=== PATIENT | male | born 1965 | race Caucasian/White ===

== ENCOUNTER 2020-09-29 15:54 | Emergency (ER) | payer OTHER ==
[~2020-09-29] VITALS: Ht 185.4 cm; Wt 97.7 kg
[2020-09-29 16:54] VITALS: Ht 185.4 cm; Wt 97.7 kg
[2020-09-29] MEDS ORDERED: DEPAKOTE ER500 MG PO (16:59)
[2020-09-29 17:15] LABS: BASOPHILS 0.8 % (0-2); EOSINOPHILS 0.8 % (0-7); HEMATOCRIT 40.2 % (42.0-54.0); HEMOGLOBIN 14.3 g/dL (13.5-17.5); IMMATURE GRANULOCYTES 0.5 % (0-5); LYMPHOCYTE ABS# 0.75 10x3/uL (1.32-3.57); LYMPHOCYTES 19.8 % (15-50); MCH 36.5 pg (26.0-34.0); MCHC 35.6 g/dL (31.0-37.0); MCV 102.6 fL (80.0-100.0); MEAN PLATELET VOLUME 10.9 fL (7.4-10.4); MONOCYTES 19.5 % (2-11); NEUTROPHIL ABS# 2.22 10x3/uL (1.78-5.38); NEUTROPHILS 58.6 % (40-80); PLATELET COUNT 77 10x3/uL (130-400); RBC 3.92 10x6/uL (4.20-6.10); RDW 14.7 % (11.5-14.5); WBC 3.8 10x3/uL (4.8-10.8)
[2020-09-29 17:25] LABS: CALC OSMOLALITY 265 mosm/kg (275-300); CALCIUM 8.5 mg/dL (8.5-10.1); CARBON DIOXIDE 27.3 mmol/L (21.0-32.0); CHLORIDE - SERUM 98 mmol/L (98-107); CREATININE - SERUM 0.8 mg/dL (0.6-1.3); GLUCOSE 82 mg/dL (74-106); POTASSIUM - SERUM 3.9 mmol/L (3.5-5.1); SODIUM 135 mmol/L (136-145); UREA NITROGEN 4 mg/dL (7-18); eGFR NON AFRICAN AMERICAN > 90 mL/min (90-120)
[2020-09-29 17:40] LABS: ALBUMIN 3.1 g/dL (3.4-5.0); ALKALINE PHOSPHATASE 80 U/L (30-120); ALT (SGPT) 39 U/L (10-68); BILIRUBIN - TOTAL 0.45 mg/dL (0.2-1.3); LIPASE 188 U/L (73-393); MAGNESIUM - SERUM 2.2 mg/dL (1.8-2.4); PRO BNP 20 pg/mL (0-125); PROTEIN - SERUM 7.3 g/dL (6.4-8.2)
[2020-09-29 18:55] LABS: PLATELET ESTIMATE DECREASED
[2020-09-29 20:47] VITALS: BP 126/78
== END 2020-09-29 19:30 | disposition home or self-care (01) ==
LOC: D.ER 15:54
PROVIDERS: Family Medicine
DX: R55 Syncope and collapse (principal); R42 Dizziness and giddiness

== ENCOUNTER 2020-10-08 15:33 | Emergency (ER) | payer OTHER ==
[~2020-10-08] VITALS: Ht 185.4 cm; Wt 100.0 kg
[~2020-10-08 15:33] MED LIST: DEPAKOTE ER500 MG PO
[2020-10-08 16:23] VITALS: Ht 185.4 cm; Wt 100.0 kg
[2020-10-08 18:30] LABS: BASOPHILS 0.5 % (0-2); EOSINOPHILS 0.5 % (0-7); HEMATOCRIT 36.4 % (42.0-54.0); HEMOGLOBIN 13.2 g/dL (13.5-17.5); IMMATURE GRANULOCYTES 0.5 % (0-5); LYMPHOCYTE ABS# 0.74 10x3/uL (1.32-3.57); MCH 36.8 pg (26.0-34.0); MCHC 36.3 g/dL (31.0-37.0); MCV 101.4 fL (80.0-100.0); MEAN PLATELET VOLUME 9.6 fL (7.4-10.4); MONOCYTES 14.1 % (2-11); NEUTROPHIL ABS# 2.55 10x3/uL (1.78-5.38); NEUTROPHILS 65.4 % (40-80); PLATELET COUNT 69 10x3/uL (130-400); RBC 3.59 10x6/uL (4.20-6.10); RDW 14.6 % (11.5-14.5); WBC 3.9 10x3/uL (4.8-10.8)
[2020-10-08 18:46] LABS: CALC OSMOLALITY 264 mosm/kg (275-300); CALCIUM 8.9 mg/dL (8.5-10.1); CARBON DIOXIDE 24.6 mmol/L (21.0-32.0); CHLORIDE - SERUM 97 mmol/L (98-107); CREATININE - SERUM 0.7 mg/dL (0.6-1.3); GLUCOSE 86 mg/dL (74-106); POTASSIUM - SERUM 3.9 mmol/L (3.5-5.1); SODIUM 134 mmol/L (136-145); UREA NITROGEN 8 mg/dL (7-18); eGFR NON AFRICAN AMERICAN > 90 mL/min (90-120)
[2020-10-08 18:52] LABS: ALBUMIN 3.2 g/dL (3.4-5.0); ALKALINE PHOSPHATASE 88 U/L (30-120); ALT (SGPT) 39 U/L (10-68); PROTEIN - SERUM 7.6 g/dL (6.4-8.2); VALPROIC ACID (DEPAKOTE) 43.2 ug/mL (50.0-100.0)
[2020-10-08 19:02] LABS: BILIRUBIN NEGATIVE (NEGATIVE); KETONE SMALL mg/dL (NEGATIVE); NITRITE NEGATIVE (NEGATIVE); UROBILINOGEN NORMAL mg/dL (< 2)
[2020-10-08 19:13] LABS: APTT 28.2 SECONDS (22.8-39.4); INR 1.04 (0.85-1.17); PROTIME 12.6 SECONDS (11.6-15.0)
[2020-10-08 19:32] LABS: PLATELET ESTIMATE DECREASED
[2020-10-08] MEDS ORDERED: DICLOFENAC SODI50 MG PO (20:53)
[2020-10-08] MEDS ORDERED: LIBRIUM25 MG PO (20:53)
[2020-10-08 22:13] VITALS: BP 131/90
== END 2020-10-08 22:14 | disposition home or self-care (01) ==
LOC: D.ER 15:33
PROVIDERS: Emergency Medicine
DX: S09.90XA Unspecified injury of head, initial encounter (principal); S32.009A Unspecified fracture of unspecified lumbar vertebra, initial encounter for closed fracture; S00.01XA Abrasion of scalp, initial encounter; V89.2XXA Person injured in unspecified motor-vehicle accident, traffic, initial encounter; Y93.9 Activity, unspecified; Y92.9 Unspecified place or not applicable

== ENCOUNTER 2020-10-14 17:07 | Inpatient (IN) | payer OTHER ==
[~2020-10-14] VITALS: Ht 185.4 cm; Wt 97.5 kg
[~2020-10-14 17:07] MED LIST changes: +DICLOFENAC SODI50 MG PO; +LIBRIUM25 MG PO
[2020-10-14] MEDS ORDERED: K-DUR20 MEQ PO (17:17)
[2020-10-14 18:31] LABS: BASOPHILS 0.3 % (0-2); EOSINOPHILS 5.3 % (0-7); HEMATOCRIT 38.5 % (42.0-54.0); HEMOGLOBIN 13.3 g/dL (13.5-17.5); IMMATURE GRANULOCYTES 0.9 % (0-5); LYMPHOCYTE ABS# 0.83 10x3/uL (1.32-3.57); LYMPHOCYTES 24.6 % (15-50); MCH 36.4 pg (26.0-34.0); MCHC 34.5 g/dL (31.0-37.0); MCV 105.5 fL (80.0-100.0); MEAN PLATELET VOLUME 10.3 fL (7.4-10.4); MONOCYTES 14.5 % (2-11); NEUTROPHIL ABS# 1.84 10x3/uL (1.78-5.38); NEUTROPHILS 54.4 % (40-80); RBC 3.65 10x6/uL (4.20-6.10); WBC 3.4 10x3/uL (4.8-10.8)
[2020-10-14 18:33] LABS: PLATELET COUNT 100 10x3/uL (130-400)
[2020-10-14 18:57] LABS: CALC OSMOLALITY 264 mosm/kg (275-300); CALCIUM 9.5 mg/dL (8.5-10.1); CARBON DIOXIDE 31.5 mmol/L (21.0-32.0); CHLORIDE - SERUM 99 mmol/L (98-107); CREATININE - SERUM 0.7 mg/dL (0.6-1.3); GLUCOSE 89 mg/dL (74-106); POTASSIUM - SERUM 4.1 mmol/L (3.5-5.1); SODIUM 134 mmol/L (136-145); UREA NITROGEN 6 mg/dL (7-18); eGFR NON AFRICAN AMERICAN > 90 mL/min (90-120)
[2020-10-14 19:11] LABS: ALBUMIN 3.3 g/dL (3.4-5.0); ALKALINE PHOSPHATASE 98 U/L (30-120); ALT (SGPT) 25 U/L (10-68); BILIRUBIN - TOTAL 0.83 mg/dL (0.2-1.3); MAGNESIUM - SERUM 2.1 mg/dL (1.8-2.4); PROTEIN - SERUM 7.1 g/dL (6.4-8.2)
[2020-10-14 19:35] LABS: BILIRUBIN NEGATIVE (NEGATIVE); KETONE NEGATIVE (NEGATIVE); NITRITE NEGATIVE (NEGATIVE); UROBILINOGEN NORMAL mg/dL (< 2)
[2020-10-14 19:36] LABS: UDS - AMPHET NEGATIVE QUAL (NEGATIVE); UDS - BARB NEGATIVE QUAL (NEGATIVE); UDS - BENZO POSITIVE QUAL (NEGATIVE); UDS - COCAINE NEGATIVE QUAL (NEGATIVE); UDS - OPIATE NEGATIVE QUAL (NEGATIVE); UDS - PCP NEGATIVE QUAL (NEGATIVE); UDS - THC NEGATIVE QUAL (NEGATIVE)
[2020-10-14 21:55] VITALS: BP 144/95
--- NOTE | 2020-10-14 22:02 | NUR ---
TRIED TO CALL REPORT AT THIS TIME, RN BUSY STATES SHE WILL CALL ME BACK
--- NOTE | 2020-10-14 22:26 | NUR ---
REPORT GIVEN TO WENDY RESENDEZ AT THIS TIME WITH VERBAL ACKNOWLEDGEMENT OBTAINED.
[2020-10-15 00:37] VITALS: BP 113/80; BMI 28.4
[2020-10-15 05:29] LABS: BASOPHILS 0.6 % (0-2); EOSINOPHILS 3.9 % (0-7); HEMOGLOBIN 12.8 g/dL (13.5-17.5); IMMATURE GRANULOCYTES 0.8 % (0-5); LYMPHOCYTE ABS# 1.26 10x3/uL (1.32-3.57); LYMPHOCYTES 34.8 % (15-50); MCHC 34.6 g/dL (31.0-37.0); MCV 106.9 fL (80.0-100.0); MEAN PLATELET VOLUME 10.5 fL (7.4-10.4); MONOCYTES 18.2 % (2-11); NEUTROPHIL ABS# 1.51 10x3/uL (1.78-5.38); NEUTROPHILS 41.7 % (40-80); PLATELET COUNT 108 10x3/uL (130-400); RBC 3.46 10x6/uL (4.20-6.10); RDW 15.2 % (11.5-14.5); RETIC 2.44 % (0.45-2.28); WBC 3.6 10x3/uL (4.8-10.8)
[2020-10-15 05:59] LABS: % SATURATION 27 % (15-55); APTT 28.6 SECONDS (22.8-39.4); IRON 82 ug/dl (35-150); TOTAL IRON BIND CAPACITY 294 ug/dl (260-445); UNSAT IRON BIND CAPACITY 212 ug/dl (150-375)
[2020-10-15 06:01] LABS: INR 1.04 (0.85-1.17); PROTIME 12.5 SECONDS (11.6-15.0)
[2020-10-15 06:22] LABS: ALBUMIN 3.2 g/dL (3.4-5.0); ALKALINE PHOSPHATASE 97 U/L (30-120); ALT (SGPT) 23 U/L (10-68); BILIRUBIN - TOTAL 0.73 mg/dL (0.2-1.3); CALC OSMOLALITY 271 mosm/kg (275-300); CALCIUM 9.3 mg/dL (8.5-10.1); CARBON DIOXIDE 29.7 mmol/L (21.0-32.0); CHLORIDE - SERUM 102 mmol/L (98-107); CREATININE - SERUM 0.6 mg/dL (0.6-1.3); FERRITIN 576 ng/mL (3-244); GLUCOSE 72 mg/dL (74-106); MAGNESIUM - SERUM 2.4 mg/dL (1.8-2.4); PHOSPHOROUS 3.7 mg/dL (2.5-4.9); POTASSIUM - SERUM 3.6 mmol/L (3.5-5.1); SODIUM 138 mmol/L (136-145); THYROID STIMULATING HORMONE 7.43 uIU/mL (0.36-3.74); UREA NITROGEN 5 mg/dL (7-18); VALPROIC ACID (DEPAKOTE) 91.4 ug/mL (50.0-100.0); eGFR NON AFRICAN AMERICAN > 90 mL/min (90-120)
--- NOTE | 2020-10-15 07:55 | NUR ---
RECEIVED VERBAL CONSENT TO SPEAK WITH BROTHER VERONICA REGARDING PLAN OF CARE.
--- NOTE | 2020-10-15 09:00 | NUR ---
PT LYING IN BED WITH HOB RAISED WATCHING TV, RR EVEN NON LABORED. NO NEEDS VOICED AT THIS TIME. CLWR.
[2020-10-15 09:49] VITALS: BP 129/78
--- NOTE | 2020-10-15 10:39 | NUR ---
PT SITTING UP IN BED, IV INFUSING WITHOUT DIFFICULTY. RR EVEN NON LABORED. PT WATCHING HIS CELL PHONE, URINAL EMPTIED. PT REQUESTED ALL LIGHTS TURNED OFF. NO FURTHER NEEDS VOICED. CLWR.
[2020-10-15 13:00] VITALS: BP 137/86
[2020-10-15 14:20] VITALS: Ht 185.4 cm; Wt 97.5 kg
[2020-10-15] MEDS ORDERED: LIBRIUM 10 MG C10 MG (14:40)
--- NOTE | 2020-10-15 15:00 | NUR ---
SPOKE WITH PT EX AT BEDSIDE WITH PT. PT EX WROTE OUT HISTORY OF PT AND TIMELINE , PLAN OF CARE DISCUSSED. NOTIFIED ZULY WHITNEY AT 1530 REGARDING THIS AND PLACED NOTE IN PT CHART. CHELO AWARE. NOTIFIED PT.
--- NOTE | 2020-10-15 23:16 | NUR ---
pt transferred to room 2238 via wc. right PIV flushed prior to transfer,no leakign or swelling noted. pt tolerated well. ambulated from bed to wc and from ec to new room bed.
[2020-10-16 04:00] VITALS: BP 154/85
[2020-10-16 06:10] LABS: BASOPHILS 0.3 % (0-2); EOSINOPHILS 2.8 % (0-7); HEMATOCRIT 34.2 % (42.0-54.0); HEMOGLOBIN 11.7 g/dL (13.5-17.5); IMMATURE GRANULOCYTES 0.6 % (0-5); LYMPHOCYTE ABS# 1.24 10x3/uL (1.32-3.57); LYMPHOCYTES 34.3 % (15-50); MCH 36.8 pg (26.0-34.0); MCHC 34.2 g/dL (31.0-37.0); MCV 107.5 fL (80.0-100.0); MEAN PLATELET VOLUME 11.3 fL (7.4-10.4); MONOCYTES 15.8 % (2-11); NEUTROPHIL ABS# 1.67 10x3/uL (1.78-5.38); NEUTROPHILS 46.2 % (40-80); PLATELET COUNT 113 10x3/uL (130-400); RBC 3.18 10x6/uL (4.20-6.10); RDW 15.1 % (11.5-14.5); WBC 3.6 10x3/uL (4.8-10.8)
[2020-10-16 06:28] LABS: ALBUMIN 2.8 g/dL (3.4-5.0); ALKALINE PHOSPHATASE 94 U/L (30-120); ALT (SGPT) 21 U/L (10-68); BILIRUBIN - TOTAL 0.64 mg/dL (0.2-1.3); CALC OSMOLALITY 267 mosm/kg (275-300); CALCIUM 8.6 mg/dL (8.5-10.1); CARBON DIOXIDE 27.4 mmol/L (21.0-32.0); CHLORIDE - SERUM 102 mmol/L (98-107); CREATININE - SERUM 0.6 mg/dL (0.6-1.3); GLUCOSE 75 mg/dL (74-106); MAGNESIUM - SERUM 2.4 mg/dL (1.8-2.4); POTASSIUM - SERUM 3.9 mmol/L (3.5-5.1); PROTEIN - SERUM 6.5 g/dL (6.4-8.2); SODIUM 136 mmol/L (136-145); UREA NITROGEN 4 mg/dL (7-18); eGFR NON AFRICAN AMERICAN > 90 mL/min (90-120)
[2020-10-16 08:57] VITALS: BP 116/85
[2020-10-16 10:19] LABS: INR 1.04 (0.85-1.17); PROTIME 12.6 SECONDS (11.6-15.0)
[2020-10-16 12:12] LABS: HEPATITIS C ANTIBODY <0.1 S/CO RAT (0.0-0.9)
[2020-10-16 13:16] VITALS: BP 141/89
--- NOTE | 2020-10-16 13:22 | NUR ---
Nutrition follow-up: Visited with pt during meal rounds. Pt reports good appetite; ate 100% of breakfast. Pt states meals have been good. RDN gave pt menus and explained how to use. Diet order: Regular PO intake 75% -100% of meals Labs reviewed No BM charted since admit Wt: 214# Pt currently meeting most ofnutrition goals. Recommendations: Provide a stool softener RDN will follow-up: 10/22/20
[2020-10-16 16:29] VITALS: BP 136/86
[2020-10-16 20:00] VITALS: BP 134/95
--- NOTE | 2020-10-16 20:00 | NUR ---
RRESTING IN BED EYES CLOSED AROUSED EASILY, DENIES PAIN OR NEEDS AT THIS TIME, SEE SHIFT ASSESSMENT, CALL LIGHT IN REACH
[2020-10-17] VITALS: BP 145/90
[2020-10-17 04:00] VITALS: BP 141/91
[2020-10-17 07:06] LABS: BASOPHILS 0.8 % (0-2); EOSINOPHILS 3.4 % (0-7); HEMOGLOBIN 12.6 g/dL (13.5-17.5); IMMATURE GRANULOCYTES 0.3 % (0-5); LYMPHOCYTE ABS# 1.43 10x3/uL (1.32-3.57); LYMPHOCYTES 40.4 % (15-50); MCH 38.3 pg (26.0-34.0); MCV 109.4 fL (80.0-100.0); MEAN PLATELET VOLUME 10.2 fL (7.4-10.4); MONOCYTES 18.1 % (2-11); NEUTROPHIL ABS# 1.31 10x3/uL (1.78-5.38); PLATELET COUNT 110 10x3/uL (130-400); RBC 3.29 10x6/uL (4.20-6.10); RDW 15.3 % (11.5-14.5); WBC 3.5 10x3/uL (4.8-10.8)
[2020-10-17 07:16] LABS: ALBUMIN 3.1 g/dL (3.4-5.0); ALKALINE PHOSPHATASE 95 U/L (30-120); ALT (SGPT) 22 U/L (10-68); BILIRUBIN - TOTAL 0.66 mg/dL (0.2-1.3); CALC OSMOLALITY 276 mosm/kg (275-300); CALCIUM 8.9 mg/dL (8.5-10.1); CARBON DIOXIDE 29.3 mmol/L (21.0-32.0); CHLORIDE - SERUM 105 mmol/L (98-107); CREATININE - SERUM 0.6 mg/dL (0.6-1.3); GLUCOSE 73 mg/dL (74-106); MAGNESIUM - SERUM 2.5 mg/dL (1.8-2.4); PHOSPHOROUS 3.4 mg/dL (2.5-4.9); POTASSIUM - SERUM 4.4 mmol/L (3.5-5.1); PROTEIN - SERUM 6.5 g/dL (6.4-8.2); SODIUM 141 mmol/L (136-145); UREA NITROGEN 4 mg/dL (7-18); eGFR NON AFRICAN AMERICAN > 90 mL/min (90-120)
--- NOTE | 2020-10-17 07:30 | NUR ---
REC'D IN BED AWAKE AND ALERT. RESP EVEN AND UNLABORED WITH NO DISTRESS NOTED. CAN EXPRESS NEEDS AND WANTS. ASSESSMENT COMPLETED. C/L IN REACH AT BEDSIDE.
[2020-10-17 10:18] VITALS: BP 133/87
--- NOTE | 2020-10-17 11:19 | NUR ---
I have reviewed this patient and I concur with the Shift Assessment completed by the Licensed Practical Nurse today this shift.
[2020-10-17] MEDS ORDERED: SYNTHROID25 MCG PO (11:24)
[2020-10-17] MEDS ORDERED: FOLIC ACID1 MG PO (11:24)
[2020-10-17] MEDS ORDERED: MULTI-DAY VITAM1 TAB PO (11:24)
[2020-10-17] MEDS ORDERED: VITAMIN B-1100 M1 PO (11:24)
[2020-10-17 12:52] LABS: INR 1.06 (0.85-1.17); PROTIME 12.8 SECONDS (11.6-15.0)
[2020-10-17 13:05] VITALS: BP 135/82
--- NOTE | 2020-10-17 15:00 | NUR ---
DC HOME VOICE UNDERSTANDING OF DC SUMMARY ALONG WITH . IV DC STABLE CONDITION UPON DEPARTURE.
--- NOTE | 2020-10-17 15:07 | MORECARE ---
CASE MANAGEMENT DISCHARGE SUMMARY PATIENT: KRISTY LOPEZ UNIT: [id number] ADM DATE: 10/15/20 AGE: 55 : 65 SEX: M ROOM/BED: D.2238 AUTHOR: OLIVE,DOC PHYSICIAN: REFERRING PHYSICIAN: CHELSEA ABRAMS MD DATE OF SERVICE: 10/17/20 Case Management Discharge Planning Summary COMMENTS ENTERED DATE: 10/17/20 14:57 CT COMMENT TYPE: Discharge Planning REVIEWER: Connie Cruz CM MET WITH PATIENT AND FAMILY ABOUT DC PLANNING NEEDS. STATES WILL NEED A WALKER FOR HOME. [facility] IS A [facility]. ORDER SENT WITH PATIENT FAMILY FOR A WALKER. NO OTHER NEEDS IDENTIFIED. PATIENT HAS A FOLLOW UP APPOINTMENT IN ONE WEEK. CM TO FOLLOW AND ASSIST. DCP REVIEW SUMMARY ANTICIPATED D/C DATE: EXPECTED LOS : CASE STATUS: DCP Initiated INITIAL REVIEW: 10/14/2020 INITIAL REVIEWER: Connie Cruz FINAL DISCHARGE DISPOSITION: : FINAL REVIEWER: FINAL REVIEW DATE: DCP Focus Questions & Answers QUESTION: ANSWER : PATIENT: KRISTY LOPEZ ENCOUNTER: [id number] MEDICAL RECORD#: [id number] ADMISSION DATE: 10/15/2020 DISCHARGE DATE: ATTENDING MD: : AGE: 55 MARITAL STATUS: S DC PLAN ID: [id number] FACILITY: [facility] PRINTED ON: 10/17/20 15:07 CT All edits/amendments must be made on the electronic document DICTATION DATE: 10/17/201506 SHEEP BONER: RODERICK 10/17/20 150 RPT#: [id number] DC DATE: STATUS: ADM IN [place] [id number] [place] [address] END OF REPORT
--- NOTE | 2020-10-19 18:28 | MORECARE ---
CASE MANAGEMENT DISCHARGE SUMMARY PATIENT: KRISTY LOPEZ UNIT: [id number] ADM DATE: 10/15/20 AGE: 55 : 65 SEX: M ROOM/BED: D.2238 AUTHOR: OLIVE,DOC PHYSICIAN: REFERRING PHYSICIAN: CHELSEA ABRAMS MD DATE OF SERVICE: 10/19/20 Case Management Discharge Planning Summary COMMENTS ENTERED DATE: 10/17/20 14:57 CT COMMENT TYPE: Discharge Planning REVIEWER: Connie Cruz CM MET WITH PATIENT AND FAMILY ABOUT DC PLANNING NEEDS. STATES WILL NEED A WALKER FOR HOME. [facility] IS [facility]. ORDER SENT WITH PATIENT FAMILY FOR A WALKER. NO OTHER NEEDS IDENTIFIED. PATIENT HAS A FOLLOW UP APPOINTMENT IN ONE WEEK. CM TO FOLLOW AND ASSIST. DCP REVIEW SUMMARY ANTICIPATED D/C DATE: EXPECTED LOS : CASE STATUS: DCP Initiated INITIAL REVIEW: 10/14/2020 INITIAL REVIEWER: Connie Cruz FINAL DISCHARGE DISPOSITION: : FINAL REVIEWER: FINAL REVIEW DATE: DCP Focus Questions & Answers QUESTION: ANSWER : PATIENT: KRISTY LOPEZ ENCOUNTER: [id number] MEDICAL RECORD#: [id number] ADMISSION DATE: 10/15/2020 DISCHARGE DATE: 10/17/2020 ATTENDING MD: : AGE: 55 MARITAL STATUS: S DC PLAN ID: [id number] FACILITY: [facility] PRINTED ON: 10/19/20 18:28 CT All edits/amendments must be made on the electronic document DICTATION DATE: 10/19/201827 MACHINE CLEANER: RODERICK 10/19/201827 RPT#: [id number] DC DATE:10/17/20 STATUS: DIS IN [facility] [address] [place] [address] END OF REPORT
== END 2020-10-17 16:18 | disposition home or self-care (01) | DRG 896 ==
LOC: D.ER 17:07 → D.M2 21:37 → OBSVTIME 21:38 → D.MS 10-15 17:19 → D.M2 10-15 17:19 → D.MS 10-15 23:21
PROVIDERS: Family Medicine; Internal Medicine Hematology & Oncology; ADMIT Family Medicine; ATTEND Family Medicine
DX: F10.239 Alcohol dependence with withdrawal, unspecified (principal); G93.41 Metabolic encephalopathy; D61.818 Other pancytopenia; M48.56XA Collapsed vertebra, not elsewhere classified, lumbar region, initial encounter for fracture; D53.9 Nutritional anemia, unspecified